=== PATIENT | male | born 1965 | race Caucasian/White ===

== ENCOUNTER 2018-05-04 22:32 | Emergency (ER) | payer OTHER ==
[~2018-05-04] VITALS: Ht 170.2 cm; Wt 88.5 kg
--- NOTE | 2018-05-04 22:42 | ED.ADGEN ---
Past History Past Medical History: Hypertension Adult General Chief Complaint Chief Complaint ".. I was setting at dinner at [employer].and went to move my leg...or straighten it... and had a popping noise... and it still hurts..." HPI HPI Patient is a 57 year old male who presents with pain in left knee after popping sound while moving it at the dinner table. Patient is ambulatory with minimal limp. Has straight leg lift. Ligaments appear relatively stable. There is some crepitation with range of motion. Distal neurovascular intact. Patient does have history of hypertension. Normally follows Dr. Chappell. Has not had a previous injury to this left knee. Review of Systems Review of Systems Constitutional: Denies fever or chills [] Eyes: Denies change in visual acuity, redness, or eye pain [] HENT: Denies nasal congestion or sore throat [] Respiratory: Denies cough or shortness of breath [] Cardiovascular: No additional information not addressed in HPI [] GI: Denies abdominal pain, nausea, vomiting, bloody stools or diarrhea [] : Denies dysuria or hematuria [] Musculoskeletal: Complains of left knee pain Integument: Denies rash or skin lesions [] Neurologic: Denies headache, focal weakness or sensory changes [] Endocrine: Denies polyuria or polydipsia [] All other systems were reviewed and found to be within normal limits, except as documented in this note. Family History Family History Noncontributory Current Medications Current Medications See nursing for home meds Allergies Allergies Allergies Coded Allergies Type Severity Reaction Last Updated Verified No Known Drug Allergies 05/04/18 No Physical Exam Physical Exam Constitutional: Well developed, well nourished, no acute distress, non-toxic appearance. [] HENT: Normocephalic, atraumatic, bilateral external ears normal, oropharynx moist, no oral exudates, nose normal. []Bilateral ear studs Eyes: PERRLA, EOMI, conjunctiva normal, no discharge. [] Neck: Normal range of motion, no tenderness, supple, no stridor. [] Cardiovascular:Heart rate regular rhythm, no murmur [] Lungs & Thorax: Bilateral breath sounds clear to auscultation [] Abdomen: Bowel sounds normal, soft, no tenderness, no masses, no pulsatile masses. [] Skin: Warm, dry, no erythema, no rash. [] Back: No tenderness, no CVA tenderness. [] Extremities: No tenderness, no cyanosis, no clubbing, ROM intact, no edema. [] Except findings in left knee Neurologic: Alert and oriented X 3, normal motor function, normal sensory function, no focal deficits noted. [] Psychologic: Affect normal, judgement normal, mood normal. [] Current Patient Data Vital Signs Vital Signs Date Time Temp Pulse Resp B/P (MAP) Pulse Ox O2 Delivery O2 Flow Rate FiO2 05/04/18 22:44 98.2 70 18 97 Room Air EKG EKG [] Radiology/Procedures Radiology/Procedures My interpretation of left knee films shows limited because no radiology screen. Monitor screen- DJD No radiology read at time discharge. Explained to pt. and family problem with monitor- unable to get an adequate read. . Course & Med Decision Making Course & Med Decision Making Pertinent Labs and Imaging studies reviewed. (See chart for details) Splint post phil- distal neurovascular intact. Pt. and family tired of waiting - request discharge. Radiology screen down. Ice, elevation, rest, phil wrap. Tylenol and Ibuprofen for pain. Follow up with primary. Vicoprofen marked pain. [] Final Impression Final Impression 1. Leg Pain[]-knee pain 2. Degenerative joint knee Dragon Disclaimer Dragon Disclaimer This electronic medical record was generated, in whole or in part, using a voice recognition dictation system. Dragon Disclaimer This chart was dictated in whole or in part using Voice Recognition software in a busy, high-work load, and often noisy Emergency Department environment. It may contain unintended and wholly unrecognized errors or omissions. Discharge Summary Visit Information Final Diagnosis Problems Medical Problems: (1) Knee pain, acute Status: Acute Brief Hospital Course Allergies Allergies Coded Allergies Type Severity Reaction Last Updated Verified No Known Drug Allergies 05/04/18 No Vital Signs Vital Signs Date Time Temp Pulse Resp B/P (MAP) Pulse Ox O2 Delivery O2 Flow Rate FiO2 05/04/18 22:44 98.2 70 18 97 Room Air Brief Hospital Course Mr. Sharma is a 52 old male who presented with knee pain- felt to be DJD. Pt. phil and follow up with primary- possible orthro. consult. Discharge Information Condition at Discharge: Improved, Stable Disposition/Orders: D/C to Home Dischare Medications Active Scripts Active Hydrocodone-Ibuprofen 7.5-200 (Hydrocodone/Ibuprofen) 1 Each Tablet 1 Tab PO PRN Q6HRS PRN CHRISTY RECINOS MD May 04, 2018 22:41
[2018-05-04 22:44] VITALS: BP 139/84
[2018-05-05] MEDS ORDERED: HYDR-1179 PO (00:15)
--- NOTE | 2018-05-05 08:02 | RAD ---
Indication:Injury. TECHNIQUE: 3 views of the left knee COMPARISON:None FINDINGS/ impression: No acute fracture or dislocation. No joint effusion. No arthritic process. Electronically signed by: Rafita Bravo DO (05/05/2018 7:57 AM) [facility]
== END 2018-05-05 00:20 | disposition home or self-care (01) ==
LOC: ER 22:32
DX: M17.12 Unilateral primary osteoarthritis, left knee (principal); I10 Essential (primary) hypertension
CPT/HCPCS: 73564; 99283

== ENCOUNTER 2018-06-19 20:52 | Emergency (ER) | payer OTHER ==
[~2018-06-19] VITALS: Ht 170.2 cm; Wt 86.2 kg
[~2018-06-19 20:52] MED LIST: HYDR-1179 PO
[2018-06-19 20:55] VITALS: BP 113/66
[2018-06-19] MEDS ORDERED: ORPHENADRINE CITRATE 60 MG/2 ML VIAL. IM ONE (21:45)
[2018-06-19] MEDS ORDERED: diazePAM 5 MG TABLET PO ONE (21:45)
[2018-06-19] MEDS ORDERED: HYDROcodone/APAP 5/325MG 1 TAB TABLET PO ONE (21:45)
[2018-06-19] MEDS ORDERED: ONDANSETRON ODT 4 MG TAB.RAPDIS PO ONE (21:45)
[2018-06-19] MEDS ORDERED: diazePAM 5 MG TABLET ONE (21:53)
[2018-06-19] MEDS ORDERED: MORPHINE SULFATE 4 MG/ML DISP.SYRIN. IM ONE (22:00)
--- NOTE | 2018-06-19 22:34 | PHYS DOC ---
Past History Past Medical History: Hypertension Past Surgical History: Appendectomy Alcohol Use: None Drug Use: None Adult General Chief Complaint Chief Complaint: BACK PAIN OR INJURY HPI HPI 52-year-old male presents with low back pain. Patient states he was doing yardwork 2 days ago and started having a sore back. He went to work today, as he was lifting a box he had increase in left-sided low back pain. This pain has continued to increase even after he has been resting. It is now painful and sometimes even when he moves. He gets spasms of throbbing pain with movement. Patient denies fall or trauma. No history of back surgeries. Review of Systems Review of Systems Constitutional: Denies fever or chills [] Eyes: Denies change in visual acuity, redness, or eye pain [] HENT: Denies nasal congestion or sore throat [] Respiratory: Denies cough or shortness of breath [] Cardiovascular: No additional information not addressed in HPI [] GI: Denies abdominal pain, nausea, vomiting, bloody stools or diarrhea [] : Denies dysuria or hematuria [] Musculoskeletal: Left sided low back pain[] Integument: Denies rash or skin lesions [] Neurologic: Denies headache, focal weakness or sensory changes [] Endocrine: Denies polyuria or polydipsia [] All other systems were reviewed and found to be within normal limits, except as documented in this note. Current Medications Current Medications Current Medications Medications (Trade) Dose Ordered Sig/Jessee Start Time Stop Time Status Last Admin Dose Admin Acetaminophen/ Hydrocodone Bitart (Lortab 5/325) 1 tab 1X ONCE 06/19/18 21:45 06/19/18 21:45 DC Diazepam (Valium) 5 mg STK-MED ONCE 06/19/18 21:53 06/19/18 21:54 DC Morphine Sulfate (Morphine 4mg Syringe) 2 mg 1X ONCE 06/19/18 22:00 06/19/18 22:01 DC 06/19/18 21:58 2 MG Ondansetron HCl (Zofran Odt) 4 mg 1X ONCE 06/19/18 21:45 06/19/18 21:52 DC 06/19/18 21:57 4 MG Orphenadrine Citrate (Norflex) 60 mg 1X ONCE 06/19/18 21:45 06/19/18 21:45 DC Allergies Allergies Allergies Coded Allergies Type Severity Reaction Last Updated Verified No Known Drug Allergies 05/04/18 No Physical Exam Physical Exam Constitutional: Well developed, well nourished, no acute distress, non-toxic appearance. [] HENT: Normocephalic, atraumatic, bilateral external ears normal, oropharynx moist, no oral exudates, nose normal. [] Eyes: PERRLA, EOMI, conjunctiva normal, no discharge. [] Neck: Normal range of motion, no tenderness, supple, no stridor. [] Cardiovascular:Heart rate regular rhythm, no murmur [] Lungs & Thorax: Bilateral breath sounds clear to auscultation [] Abdomen: Bowel sounds normal, soft, no tenderness, no masses, no pulsatile masses. [] Skin: Warm, dry, no erythema, no rash. [] Back: Left lumbar paraspinal tenderness and muscle spasm worse on the left.[] Extremities: No tenderness, no cyanosis, no clubbing, ROM intact, no edema. [] Neurologic: Alert and oriented X 3, normal motor function, normal sensory function, no focal deficits noted. [] Psychologic: Affect normal, judgement normal, mood normal. [] Current Patient Data Vital Signs Vital Signs Date Time Temp Pulse Resp B/P (MAP) Pulse Ox O2 Delivery O2 Flow Rate FiO2 06/19/18 21:58 18 96 Room Air 06/19/18 20:55 98.2 94 EKG EKG [] Radiology/Procedures Radiology/Procedures [] Course & Med Decision Making Course & Med Decision Making Pertinent Labs and Imaging studies reviewed. (See chart for details) [] Dragon Disclaimer Dragon Disclaimer This electronic medical record was generated, in whole or in part, using a voice recognition dictation system. Departure Departure: Impression: Primary Impression: Acute lumbar myofascial strain Disposition: 01 HOME, SELF-CARE Condition: STABLE Referrals: LIBBY LOPEZ DO (PCP) Patient Instructions: Low Back Strain with Rehab-[facility] Scripts Cyclobenzaprine Hcl (CYCLOBENZAPRINE HCL) 10 Mg Tablet 1 TAB PO TID PRN for MUSCLE SPASMS, #30 TAB Prov: LINDY CHAN DO 06/19/18 Hydrocodone Bit/Acetaminophen (NORCO 5-325 TABLET) 1 Each Tablet 1 TAB PO PRN Q6HRS PRN for PAIN, #14 TAB 0 Refills Prov: LINDY CHAN DO 06/19/18 LINDY CHAN DO Jun 19, 2018 22:34
[2018-06-19] MEDS ORDERED: HYDR-3165 PO (22:44)
[2018-06-19] MEDS ORDERED: CYCL-331 PO (22:44)
--- NOTE | 2018-06-19 23:40 | RAD ---
Three-view lumbar spine radiographs 06/19/2018 CLINICAL HISTORY: Low back pain after lifting injury. AP and 2 lateral digital radiographs of the lumbar spine were obtained. Minimal S-shaped curvature of the thoracolumbar spine is seen. No fracture or subluxation of the lumbar vertebrae seen. Degenerative changes are seen involving the lumbar disc spaces consisting of vertebral endplate sclerosis and minimal to mild anterior vertebral body osteophyte formation. Degenerative changes are seen involving the facet joints in mid and lower lumbar spine. IMPRESSION: No fracture or subluxation of the lumbar vertebrae is seen. Electronically signed by: Juancarlos Murphy MD (06/19/2018 11:37 PM) [facility]
== END 2018-06-19 23:45 | disposition home or self-care (01) ==
LOC: ER 20:52
DX: S39.012A Strain of muscle, fascia and tendon of lower back, initial encounter (principal); I10 Essential (primary) hypertension; X50.9XXA Other and unspecified overexertion or strenuous movements or postures, initial encounter; Y93.89 Activity, other specified; Y92.096 Garden or yard of other non-institutional residence as the place of occurrence of the external cause; Y99.8 Other external cause status
CPT/HCPCS: 72100; 96372; 99283; J2270; Q0162